=== PATIENT | female | born 1990 | race Hispanic/Latino ===

== ENCOUNTER 2018-03-09 14:45 | Emergency (ER) | payer BC ==
[2018-03-09 14:58] VITALS: BP 127/83
--- NOTE | 2018-03-09 15:49 | Emergency Department Report ---
Blank Doc - Documentation Documentation: Patient is a 27-year-old female who is presenting with right ankle pain. Patient states that she gets ankle pain from time to time from her old injury but however it usually lasts for approximately 1 day this time she's been having pain for approximately a week and is not able to bear weight. 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 Patient does not remember any specific incidence where she rolled her ankle and fell. Because patient cannot bear weight she does meet criteria with the [place] ankle rules for x-ray x-ray of benign be reassessed.
--- NOTE | 2018-03-09 16:20 | Emergency Department Report ---
ED Extremity Problem HPI - General Chief complaint: Extremity Injury, Lower Stated complaint: RIGHT ANKLE PAIN Time Seen by Provider: 03/09/18 15:45 Source: patient Mode of arrival: Ambulatory Limitations: No Limitations - History of Present Illness Initial comments: Patient is a 27-year-old female who is presenting with right ankle pain. Patient states that she gets ankle pain from time to time from her old injury but however it usually lasts for approximately 1 day this time she's been having pain for approximately a week and is not able to bear weight. 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 Patient does not remember any specific incidence where she rolled her ankle and fell. Severity scale (0 -10): 6 Consistency: constant Worsens with: weight bearing - Related Data Previous Rx's Medication Instructions Recorded Last Taken Type Ibuprofen [Motrin] 800 mg PO Q8HR PRN #20 tablet 03/09/18 Unknown Rx Allergies Allergy/AdvReac Type Severity Reaction Status Date / Time latex Allergy Rash Verified 03/09/18 14:55 ondansetron Allergy Nausea Verified 03/09/18 14:55 [From Zofran (as hydrochloride)] tramadol Allergy Nausea Verified 03/09/18 14:55 ED Review of Systems ROS: Stated complaint: RIGHT ANKLE PAIN Other details as noted in HPI Constitutional: denies: chills, fever Eyes: denies: eye pain, eye discharge, vision change ENT: denies: ear pain, throat pain Respiratory: denies: cough, shortness of breath, wheezing Cardiovascular: denies: chest pain, palpitations Endocrine: no symptoms reported Gastrointestinal: denies: abdominal pain, nausea, diarrhea Genitourinary: denies: urgency, dysuria, discharge Musculoskeletal: denies: back pain, joint swelling, arthralgia Skin: denies: rash, lesions Neurological: denies: headache, weakness, paresthesias Psychiatric: denies: anxiety, depression Hematological/Lymphatic: denies: easy bleeding, easy bruising ED Past Medical Hx - Past Medical History Previous Medical History?: Yes Additional medical history: poor dentation, right ankle pain - Surgical History Past Surgical History?: No - Social History Smoking Status: Current Every Day Smoker Substance Use Type: Alcohol, Non Opiate Pain - Medications Home Medications: Home Medications Medication Instructions Recorded Confirmed Last Taken Type Ibuprofen [Motrin] 800 mg PO Q8HR PRN #20 tablet 03/09/18 Unknown Rx ED Physical Exam - General Limitations: No Limitations General appearance: alert, in no apparent distress - Head Head exam: Present: atraumatic, normocephalic - Eye Eye exam: Present: normal appearance - ENT ENT exam: Present: mucous membranes moist - Neck Neck exam: Present: normal inspection - Respiratory Respiratory exam: Present: normal lung sounds bilaterally. Absent: respiratory distress, wheezes, rales, rhonchi - Cardiovascular Cardiovascular Exam: Present: regular rate, normal rhythm. Absent: systolic murmur, diastolic murmur, rubs, gallop - GI/Abdominal GI/Abdominal exam: Present: soft, normal bowel sounds. Absent: distended, tenderness - Extremities Exam Extremities exam: Present: tenderness (mild right ankle swelling), joint swelling - Back Exam Back exam: Present: normal inspection - Neurological Exam Neurological exam: Present: alert, oriented X3 - Psychiatric Psychiatric exam: Present: normal affect, normal mood - Skin Skin exam: Present: warm, dry, intact, normal color. Absent: rash ED Course Vital Signs 03/09/18 14:55 Temperature 98.4 F Pulse Rate 99 H Respiratory 18 Rate Blood Pressure 127/83 O2 Sat by Pulse 97 Oximetry ED Medical Decision Making - Radiology Data Radiology results: report reviewed, image reviewed interpreted by me: No acute process Critical care attestation.: If time is entered above; I have spent that time in minutes in the direct care of this critically ill patient, excluding procedure time. ED Disposition Clinical Impression: Ankle sprain Disposition: DC-01 TO HOME OR SELFCARE Is pt being admited?: No Does the pt Need Aspirin: No Condition: Stable Prescriptions: Ibuprofen [Motrin] 800 mg PO Q8HR PRN #20 tablet PRN Reason: Pain Referrals: MARIAELENA ESCUDERO MD [Staff Physician] - 3-5 Days
--- NOTE | 2018-03-09 17:57 | XRay Report ---
FINAL REPORT EXAM: XR ANKLE 3+V RT HISTORY: right ankle pain TECHNIQUE: AP, lateral, and oblique views of the right ankle PRIORS: None. FINDINGS: There is no evidence for acute fracture or dislocation. No soft tissue swelling or radiopaque foreign bodies are seen. The ankle mortise is intact. Bony mineralization is normal and joint spaces are maintained. IMPRESSION: No acute soft tissue or bony abnormality noted.
== END 2018-03-09 16:30 | disposition home or self-care (01) ==
LOC: ED 14:45
DX: S93.401A Sprain of unspecified ligament of right ankle, initial encounter (principal); F17.200 Nicotine dependence, unspecified, uncomplicated; Z91.040 Latex allergy status; X58.XXXA Exposure to other specified factors, initial encounter; Y93.89 Activity, other specified; Y92.89 Other specified places as the place of occurrence of the external cause; Y99.8 Other external cause status; Z88.6 Allergy status to analgesic agent
CPT/HCPCS: 99283